=== PATIENT | female | born 1970 | race Caucasian/White ===

== ENCOUNTER 2020-09-27 18:37 | Emergency (ER) | payer BC, OTHER ==
[~2020-09-27 18:37] MED LIST: ASPIR 8181 MG PO; BENTYL 20MG TAB20 MG PO; CELEXA40 MG PO; CEPHALEXIN500 MG PO; CLINDAMYCIN HC300 MG PO; ELIMITE 5% CREA60 GM TOP; ERYTHROMYCIN O3.5 GM OU; FELDENE10 MG PO; FLEXERIL 10 MG10 MG PO; GABAPENTIN600 MG PO; IBUPROFEN600 MG PO; IMDUR ER TAB 3030 MG PO; IMODIUM CAP 2 MG2 MG PO; LIPITOR40 MG PO; MEDROL4 MG PO; NAPROSYN500 MG PO; NORCO 5-325 TA1 EACH PO; NORFLEX 100 MG100 MG PO; NORVASC 5 MG TAB5 MG PO; OMNICEF 300 MG300 MG PO; OXYBUTYNIN PO; PAXIL 20 MG TAB20 MG PO; PHENERGAN 25 MG25 M1 PO; PREDNISONE 20 M20 MG PO; PROTONIX40 MG PO; PROZAC10 MG PO; SINGULAIR5 MG PO; SYNTHROID125 MCG PO; TESSALON PERLE100 MG PO; ULTRAM50 MG PO; VENTOLIN HFA 66.7 GM INH; Voltaren Gel 1 % TOP; ZANTAC 150 MG150 MG PO; ZOFRAN ODT 4 MG4 MG PO; ZOFRAN ODT 4 MG4 MG SL; ZOFRAN4 MG PO; ZYRTEC10 MG PO
[2020-09-27] MEDS ORDERED: IBUPROFEN600 MG PO (19:35)
== END 2020-09-27 20:05 | disposition home or self-care (01) ==
LOC: ER1 18:37
DX: S93.402A Sprain of unspecified ligament of left ankle, initial encounter (principal); F17.210 Nicotine dependence, cigarettes, uncomplicated; W22.8XXA Striking against or struck by other objects, initial encounter; Y92.22 Religious institution as the place of occurrence of the external cause; Z88.1 Allergy status to other antibiotic agents; Z88.2 Allergy status to sulfonamides; Z88.5 Allergy status to narcotic agent
CPT/HCPCS: 29515; 73610; 99283

== ENCOUNTER 2020-11-26 13:35 | Emergency (ER) | payer BC, OTHER ==
[2020-11-26] MEDS ORDERED: TORADOL 10 MG T10 MG PO (15:30)
== END 2020-11-26 15:57 | disposition home or self-care (01) ==
LOC: ER1 13:35
DX: S30.0XXA Contusion of lower back and pelvis, initial encounter (principal); K21.9 Gastro-esophageal reflux disease without esophagitis; F17.210 Nicotine dependence, cigarettes, uncomplicated; E78.5 Hyperlipidemia, unspecified; Z88.2 Allergy status to sulfonamides; Z87.442 Personal history of urinary calculi; W01.198A Fall on same level from slipping, tripping and stumbling with subsequent striking against other object, initial encounter; Y93.E1 Activity, personal bathing and showering
CPT/HCPCS: 72100; 96372; 99283; J1885

== ENCOUNTER 2021-02-17 23:40 | Emergency (ER) | payer BC, OTHER ==
[~2021-02-17 23:40] MED LIST changes: +TORADOL 10 MG T10 MG PO
[2021-02-18] MEDS ORDERED: NAPROSYN EC 50500 MG PO (03:08)
== END 2021-02-18 03:50 | disposition home or self-care (01) ==
LOC: ER1 23:40
DX: S93.402A Sprain of unspecified ligament of left ankle, initial encounter (principal); E03.9 Hypothyroidism, unspecified; F17.210 Nicotine dependence, cigarettes, uncomplicated; Z88.2 Allergy status to sulfonamides; X50.1XXA Overexertion from prolonged static or awkward postures, initial encounter; Y92.009 Unspecified place in unspecified non-institutional (private) residence as the place of occurrence of the external cause
CPT/HCPCS: 29515; 73610; 99283

== ENCOUNTER → 2021-05-25 | Outpatient (CLI) | payer BC, OTHER ==
[~2021-05-25] MED LIST changes: +NAPROSYN EC 50500 MG PO
== END ==
LOC: SLEEP 12:03
DX: G47.33 Obstructive sleep apnea (adult) (pediatric) (principal)
CPT/HCPCS: 95810

== ENCOUNTER 2021-08-21 17:58 | Emergency (ER) | payer BC, OTHER ==
[2021-08-21 19:25] LABS: HEMOGLOBIN 14.7 gm/dl (12.3-15.3); RED BLOOD COUNT 4.97 M/UL (4.00-5.10); WHITE BLOOD COUNT 5.9 K/UL (4.5-11.0)
[2021-08-21 19:44] LABS: BUN/CREATININE RATIO 7 (0-10)
[2021-08-21] MEDS ORDERED: ZOFRAN ODT 4 MG4 MG PO (21:52)
== END 2021-08-21 23:28 | disposition home or self-care (01) ==
LOC: ER1 17:58
PROVIDERS: Physician Assistant Medical
DX: U07.1 COVID-19 (principal); J44.9 Chronic obstructive pulmonary disease, unspecified; K21.9 Gastro-esophageal reflux disease without esophagitis; Z90.49 Acquired absence of other specified parts of digestive tract; F17.200 Nicotine dependence, unspecified, uncomplicated; Z23 Encounter for immunization; Z88.2 Allergy status to sulfonamides; Z88.1 Allergy status to other antibiotic agents
CPT/HCPCS: 80053; 81001; 83690; 85025; 99284; M0243; U0002

== ENCOUNTER → 2021-11-03 | Outpatient (CLI) | payer BC, OTHER | LOC: HEART 5 13:15 | DX: R06.02 Shortness of breath (principal) | CPT/HCPCS: 94060; 94729 ==

== ENCOUNTER → 2021-11-17 | Outpatient (CLI) | payer BC, OTHER | LOC: RAD 16:04 | DX: J44.9 Chronic obstructive pulmonary disease, unspecified (principal) | CPT/HCPCS: 71046 ==

== ENCOUNTER 2021-11-26 20:47 | Emergency (ER) | payer BC, OTHER ==
[2021-11-26 22:17] LABS: HEMOGLOBIN 12.6 gm/dl (12.3-15.3); RED BLOOD COUNT 4.42 M/UL (4.00-5.10); WHITE BLOOD COUNT 10.8 K/UL (4.5-11.0)
[2021-11-27] MEDS ORDERED: MOBIC15 MG PO (01:12)
== END 2021-11-27 01:51 | disposition home or self-care (01) ==
LOC: ER1 20:47
PROVIDERS: Physician Assistant
DX: R10.12 Left upper quadrant pain (principal); R10.32 Left lower quadrant pain; R10.812 Left upper quadrant abdominal tenderness; E78.5 Hyperlipidemia, unspecified; K21.9 Gastro-esophageal reflux disease without esophagitis; E03.9 Hypothyroidism, unspecified; F17.200 Nicotine dependence, unspecified, uncomplicated; Z88.1 Allergy status to other antibiotic agents; Z88.2 Allergy status to sulfonamides
CPT/HCPCS: 80053; 81001; 83605; 83690; 85025; 87086; 96372; 99284; J1885; Q9967

== ENCOUNTER 2022-02-17 23:16 | Emergency (ER) | payer BC, OTHER ==
[~2022-02-17 23:16] MED LIST changes: +MOBIC15 MG PO
== END 2022-02-18 04:50 | disposition home or self-care (01) ==
LOC: ER1 23:16
DX: U07.1 COVID-19 (principal); E78.5 Hyperlipidemia, unspecified; J44.9 Chronic obstructive pulmonary disease, unspecified; E03.9 Hypothyroidism, unspecified; F17.210 Nicotine dependence, cigarettes, uncomplicated; Z88.1 Allergy status to other antibiotic agents; Z88.2 Allergy status to sulfonamides; Z79.899 Other long term (current) drug therapy
CPT/HCPCS: 0240U; 87081; 87880; 96372; 99283; J1885

== ENCOUNTER → 2022-03-26 | Outpatient (CLI) | payer BC | LOC: KOH-I 03-25 13:30 | DX: F17.210 Nicotine dependence, cigarettes, uncomplicated (principal); R91.8 Other nonspecific abnormal finding of lung field | CPT/HCPCS: 71271 ==